=== PATIENT | female | born 1990 | race Caucasian/White ===

== ENCOUNTER → 2020-07-29 | Outpatient (CLI) | payer OTHER ==
[~2020-07-29] MED LIST: AEROECLIPSE II1 EACH MC; ALBUTEROL1.25 MG/3 INH; IBUPROFEN600 MG PO; NORCO 5-325 TA1 EACH PO
[2020-07-29 10:39] LABS: HEMOGLOBIN 15.4 gm/dl (12.3-15.3); RED BLOOD COUNT 5.02 M/UL (4.00-5.10); WHITE BLOOD COUNT 9.3 K/UL (4.5-11.0)
[2020-07-29 11:04] LABS: BUN/CREATININE RATIO 11 (0-10)
[2020-07-30 08:15] LABS: THYROXINE (T4) 7.3 ug/dL (4.5-12.0)
== END ==
LOC: LAB 10:05
PROVIDERS: Nurse Practitioner
DX: Z13.220 Encounter for screening for lipoid disorders (principal); R53.83 Other fatigue; R07.9 Chest pain, unspecified
CPT/HCPCS: 36415; 80053; 80061; 84436; 84443; 84480; 85025

== ENCOUNTER → 2020-10-04 | Outpatient (CLI) | payer OTHER | LOC: SLEEP 12:41 | DX: G47.33 Obstructive sleep apnea (adult) (pediatric) (principal); R29.818 Other symptoms and signs involving the nervous system | CPT/HCPCS: 95810 ==

== ENCOUNTER 2020-11-06 21:44 | Emergency (ER) | payer OTHER ==
[~2020-11-06 21:44] MED LIST changes: -AEROECLIPSE II1 EACH MC; -ALBUTEROL1.25 MG/3 INH
[2020-11-06 22:40] LABS: HEMOGLOBIN 15.5 gm/dl (12.3-15.3); RED BLOOD COUNT 4.82 M/UL (4.00-5.10); WHITE BLOOD COUNT 19.2 K/UL (4.5-11.0)
[2020-11-06 23:00] LABS: BUN/CREATININE RATIO 17 (0-10)
[2020-11-06] MEDS ORDERED: ALBUTEROL1.25 MG/3 INH (23:39)
[2020-11-06] MEDS ORDERED: AEROECLIPSE II1 EACH MC (23:39)
== END 2020-11-06 23:57 | disposition home or self-care (01) ==
LOC: ER1 21:44
PROVIDERS: Emergency Medicine
DX: J20.9 Acute bronchitis, unspecified (principal); Z88.5 Allergy status to narcotic agent; Z88.8 Allergy status to other drugs, medicaments and biological substances; F17.200 Nicotine dependence, unspecified, uncomplicated; Z20.822 Contact with and (suspected) exposure to COVID-19
CPT/HCPCS: 0240U; 71045; 80053; 85025; 94664; 99285

== ENCOUNTER → 2021-11-14 | Outpatient (CLI) | payer OTHER ==
[~2021-11-14] MED LIST changes: +AEROECLIPSE II1 EACH MC; +ALBUTEROL1.25 MG/3 INH; +GOODY'S EX-STR1 EACH PO; +MIRALAX 119 GR119 GM PO
[2021-11-14 09:52] LABS: HEMOGLOBIN 15.7 gm/dl (12.3-15.3); RED BLOOD COUNT 4.85 M/UL (4.00-5.10); WHITE BLOOD COUNT 8.4 K/UL (4.5-11.0)
== END ==
LOC: OPSV2 09:00
PROVIDERS: Obstetrics & Gynecology
DX: Z01.812 Encounter for preprocedural laboratory examination (principal); N94.10 Unspecified dyspareunia
CPT/HCPCS: 81001; 85025

== ENCOUNTER → 2021-11-25 | Day surgery (SDC) | payer OTHER ==
[~2021-11-25] MED LIST changes: +IBU600 MG PO
== END | disposition home or self-care (01) ==
LOC: OR 05:21
DX: N93.9 Abnormal uterine and vaginal bleeding, unspecified (principal); N94.10 Unspecified dyspareunia; R10.2 Pelvic and perineal pain; F17.210 Nicotine dependence, cigarettes, uncomplicated; Z88.5 Allergy status to narcotic agent; Z88.8 Allergy status to other drugs, medicaments and biological substances; Z79.899 Other long term (current) drug therapy
CPT/HCPCS: 36415; 84702; J1100; J1885; J2001; J2250; J2405; J2704; J2795; J3010; J7120

== ENCOUNTER → 2022-02-10 | Outpatient (CLI) | payer OTHER ==
[~2022-02-10] MED LIST changes: +DOCUSATE SODIU250 MG PO; +HYDROCODONE-AC1 EACH PO; +PEPTO BISMOL PO
[2022-02-10 13:17] LABS: HEMOGLOBIN 15.8 gm/dl (12.3-15.3); RED BLOOD COUNT 4.91 M/UL (4.00-5.10); WHITE BLOOD COUNT 10.5 K/UL (4.5-11.0)
== END ==
LOC: OPSV2 12:30
PROVIDERS: Obstetrics & Gynecology
DX: Z01.812 Encounter for preprocedural laboratory examination (principal); R10.2 Pelvic and perineal pain
CPT/HCPCS: 36415; 81001; 85025

== ENCOUNTER → 2022-02-13 | Day surgery (SDC) | payer OTHER | END | disposition home or self-care (01) | LOC: OR 08:11 | DX: D25.2 Subserosal leiomyoma of uterus (principal); N72 Inflammatory disease of cervix uteri; N87.9 Dysplasia of cervix uteri, unspecified; F17.210 Nicotine dependence, cigarettes, uncomplicated; Z88.5 Allergy status to narcotic agent; Z88.8 Allergy status to other drugs, medicaments and biological substances; Z79.82 Long term (current) use of aspirin | CPT/HCPCS: 84703; C1769; J0690; J1100; J1885; J2001; J2250; J2405; J2704; J2710; J3010 ==